=== PATIENT | male | born 1990 | race Caucasian/White ===

== ENCOUNTER 2024-08-01 11:15 | Emergency (ER) | payer OTHER, SELFPAY ==
[2024-08-01 11:32] VITALS: BP 126/78
[2024-08-01 12:06] VITALS: BMI 26.6
--- NOTE | 2024-08-01 13:11 | ED.GENMED ---
History of Present Illness
General
Chief Complaint: Headache
Source: patient
Time Seen by Provider: 08/01/24 13:01
History of Present Illness
History of Present Illness:
33yoM with a history of a prior sinus surgery at 15 and remote history of substance abuse currently on Sublocade presenting for evaluation of a headache/sinus pain x 2.5 weeks. He reports pain and pressure behind his right eye for the past several
weeks. He was seen at urgent care last week and prescribed prednisone 50mg x 5 days which he completed as well as amoxicillin x 10 days which he is still taking. Patient has not noticed any improvement in his symptoms. He states his symptoms feel
different than his prior sinus infections in that he is not having any associated nasal congestion. He used a Netipot yesterday and had worsening pain afterwards. He currently rates his pain as a 5/10 in severity. Ibuprofen does provide temporary
relief. He denies any fevers, chills, nausea, vomiting, dizziness, photophobia, blurred/double vision, foreign body sensation. He had a sinus surgery at the age of 15 in which 'mucous stuff' was removed.
Past History
Past History
ED Past Medical History: None
ED Past Surgical History: Other (Sinus surgery)
Social History
Tobacco: Smoker
Drug: Narcotics
Living: with family
Employment: Not employed
Phy Exam
General Physical Exam
General Presentation: well appearing and no apparent distress
General age: appears stated age
General Skin: warm and dry
General Habitus: normal
General Mental: alert
General Hydration: appears well hydrated
ENT Exam
ENT Exam: TM's normal, pharynx normal, neck supple and normocephalic
Eye Exam
Eye Exam: PERRL, EOMI, visual silverio normal and other (Pressure 9mmHg in R eye)
Cardiovascular Exam
Cardiovascular Exam: regular rate/rhythm and no murmur
Pulmonary Exam
Pulmonary Exam: lungs clear, no respiratory distress, no rales, no crackles, no rhonchi and no wheezing
Gypsy Coma Scale
Eye Opening: Spontaneous
Verbal Response: Oriented
Motor Response: Obeys Commands
GCS Total Score: 15
Skin Exam
Skin Exam: normal color and warm/dry
Psychiatric Exam
Psychiatric Exam: normal mood/affect
Course
Orders/Labs/Results
Orders:
Orders
08/01/24 13:10
CT Head W/o Iv Contrast Urgent
Comment:
Reason For Exam: Headache, pain behind R eye x 2 weeks
Vital Signs
Initial and Last Documented VS:
Initial Vital Signs
Temp Pulse Resp BP Pulse Ox
98.5 F 69 18 126/78 100
08/01/24 11:32 08/01/24 11:32 08/01/24 11:32 08/01/24 11:32 08/01/24 11:32
Last Documented Vital Signs
Temp Pulse Resp BP Pulse Ox
98.5 F 70 18 128/70 99
08/01/24 11:32 08/01/24 15:34 08/01/24 15:34 08/01/24 15:34 08/01/24 15:34
MDM/Problems Addressed
Differential Diagnosis Includes:
33yoM here with R sided headache/pain behind R eye x 2.5 weeks. Currently being treated for a sinus infection without improvement although he denies any nasal congestion. No visual symptoms. No fevers or neck stiffness. He is afebrile and
hemodynamically stable. He is well appearing in no distress. Exam is reassuring. Ocular pressure of R eye is normal. Differential diagnosis includes but is not limited to: migraine, tension headache, sinusitis
Initial ED plan: Check CT head. Patient declines analgesics.
*Critical Care Note
Total Time (30-74mins, 75-104mins- exclusive of procedures): Not Applicable
Update Note
Update Note:
CT head is negative for acute findings. The visualized sinuses appear normal. Patient is stable for discharge. Unclear etiology of symptoms. Supportive care discussed. He was advised to follow-up with his PCP. ED return precautions discussed.
He expressed understanding and is agreeable to plan. He was discharged in stable condition.
ED Attending Note
-
Portions of this chart may have been created with voice recognition software.� Occasional wrong word or��sound alike� substitutions may have occurred due to the inherent limitations of voice recognition software.
Discharge Plan
Departure
Patient Disposition: Home (Routine Discharge)
Date of Disposition: 08/01/24
Time of Disposition: 15:17
Patient with high blood pressure during this ER visit?: No
Discharge Problem:
Headache
Instructions: Headache, Adult (DC)
Prescriptions:
No Action
amoxicillin 500 MG capsule
500 mg PO TID Qty: 30 0RF
prednisone 50 MG tablet
50 mg PO DAILY 5 Days 0RF
amoxicillin-pot clavulanate 875 MG/125 MG tablet
1 tab PO Q12 Qty: 10 0RF
azithromycin 250 MG tablet
250 mg PO DAILY Qty: 6 0RF
albuterol sulfate [Proventil HFA] 90 MCG/PUFF HFA aerosol inhaler
1 puff inhalation Q4H PRN (Reason: SOB) Qty: 1 0RF
ondansetron 4 MG tablet,disintegrating
4 mg PO TIDPRN PRN (Reason: nausea/vomiting) Qty: 10 0RF
clonidine HCl 0.1 MG tablet
0.1 mg PO BID Qty: 8 0RF
Referrals:
NONE,* [Family Provider] -
Activity Restrictions/Additional Instructions:
Take Tylenol and ibuprofen as needed for pain.
Please follow-up with a primary care provider. Return to the ER with any new or worsening symptoms.
Interventions
Interventions:
*Risk Screen - Suicide Last Done: 08/01/24 11:32
*General Assessment Last Done: 08/01/24 11:32
*Neglect/Abuse Screening Last Done: 08/01/24 11:32
*Nursing Disposition Last Done: 08/01/24 15:36
ED- Neurological Assessment Last Done: 08/01/24 12:06
Discharge Date and Time
Discharge Date/Time: 08/01/24 15:36
Print Language: ALBANIAN
[2024-08-01 15:34] VITALS: BP 128/70
== END 2024-08-01 15:36 | disposition home or self-care (01) ==
LOC: EMR 11:15
PROVIDERS: EMERGENCY PHYSICIAN Emergency Medicine
DX: R51.9 Headache, unspecified (principal)
CPT/HCPCS: 99284; 70450

== ENCOUNTER 2025-07-11 09:55 | Emergency (ER) | payer OTHER, SELFPAY ==
[2025-07-11 10:03] VITALS: BP 128/87
[2025-07-11 10:25] LABS: Hematocrit 46.0 % (39.0-52.0); Hemoglobin 15.7 g/dL (13.0-18.0); Mean Corp Hgb Conc. 34.1 g/dL (33.0-37.0); Mean Corpuscular Volume 86.8 fL (80.0-94.0); Nucleated Red Blood Cells % 0 % (-); Platelet Count 263 10^3/uL (130-400); Red Cell Dist. Width 12.5 % (11.5-14.5)
[2025-07-11 10:49] LABS: ALT (SGPT) 58 U/L (0-50); AST (SGOT) 31 U/L (17-59); Albumin 5.1 g/dl (3.5-5.0); Alkaline Phosphatase 64 U/L (38-126); Blood Urea Nitrogen 11 mg/dl (9-20); Calcium 10.3 mg/dl (8.4-10.2); Carbon Dioxide 28 mmol/L (22-30); Chloride 104 mmol/L (98-107); Glucose 107 mg/dl (70-99); Potassium 4.6 mmol/L (3.5-5.1); Sodium 140 mmol/L (135-145); Total Protein 7.7 g/dl (6.3-8.2); eGFR > 60.00
[2025-07-11 11:36] VITALS: BP 124/76
[2025-07-11 11:39] VITALS: BMI 29.2
[2025-07-11 12:00] VITALS: BP 111/77
[2025-07-11 12:03] LABS: Troponin I < 0.012 ng/ml
--- NOTE | 2025-07-11 12:04 | ED.GENMED ---
History of Present Illness
<Bhargavi Reyes MD, Resident - Last Filed: 07/11/25 14:19>
General
Chief Complaint: Chest Pain
Source: patient
Time Seen by Provider: 07/11/25 11:41
History of Present Illness
History of Present Illness:
Anatoly Oshea is a 34-year-old male with history of opioid use disorder s/p Sublocade x 7, WPW, and sinus infections who presents with 2 days of chest discomfort. He states that he feels a pressure/shooting pain in his sternum that radiates to his
neck and jaw. He has taken Motrin without relief. He also endorses shortness of breath on exertion, for example he feels winded going from the bathroom to his room. He endorses a family history of early cardiac disease and [place] (heart attack and
stenting in dad in his 40s). Of note, he does not follow with any specialist despite WPW history. He denies nausea, vomiting, fevers, withdrawal symptoms, opioid use, trauma to the area, or recent infection.
Past History
<Bhargavi Reyes MD, Resident - Last Filed: 07/11/25 14:19>
Past History
ED Past Medical History: Other (WPW, opioid use disorder s/p Sublocade)
ED Past Surgical History: Other (Sinus surgery)
Social History
Tobacco: Smoker
Drug: Narcotics
Living: with family
Employment: Not employed
Phy Exam
<Bhargavi Reyes MD, Resident - Last Filed: 07/11/25 14:19>
General Physical Exam
General Presentation: well appearing and no apparent distress
General Skin: warm and dry
ENT Exam
ENT Exam: EOMI
Cardiovascular Exam
Cardiovascular Exam: regular rate/rhythm, no edema, no gallop, no JVD and no murmur
Pulmonary Exam
Pulmonary Exam: lungs clear and no respiratory distress
Gastrointestinal Exam
Gastrointestinal Exam: normal bowel sounds, non tender, soft and non distended
Skin Exam
Skin Exam: normal color and warm/dry
Scores
<Bhargavi Reyes MD, Resident - Last Filed: 07/11/25 14:19>
Heart Score for Chest Pain Patients
STEMI patient?: No
History: Slightly or Non-Suspicious
ECG: Normal (As baseline WPW)
Age: </= 45 years
Risk Factors: 1 or 2 Risk Factors
Troponin: >1 - <3 x Normal Limit
Heart Score for Chest Pain Patients: 2
Heart Score Risk: 2.5% MACE over next 6 weeks
Course
<Bhargavi Reyes MD, Resident - Last Filed: 07/11/25 14:19>
Orders/Labs/Results
Orders:
Orders
07/11/25 10:02
EKG [Electrocardiogram (*1)] Urgent
Reason for Study: Tachycardia
EKG- Treatment ONCE
07/11/25 10:20
Complete Blood Count/With Diff Urgent
Comprehensive Metabolic Panel Urgent
Troponin I Urgent
07/11/25 12:18
CR Chest - 2 Views Urgent
Comment:
Reason For Exam: SOB, chest pain
07/11/25 12:36
D-Dimer Urgent
Abnormal Lab Results
07/11/25
10:20
Glucose 107 H mg/dl
(70-99)
Calcium 10.3 H mg/dl
(8.4-10.2)
ALT 58 H U/L
(0-50)
Albumin 5.1 H g/dl
(3.5-5.0)
07/11/25 10:20
07/11/25 10:20
Vital Signs
Initial and Last Documented VS:
Initial Vital Signs
Temp Pulse Resp BP Pulse Ox
98.0 F 73 16 128/87 99
07/11/25 10:03 07/11/25 10:03 07/11/25 10:03 07/11/25 10:03 07/11/25 10:03
Last Documented Vital Signs
Temp Pulse Resp BP Pulse Ox
98.4 F 60 17 119/77 99
07/11/25 12:00 07/11/25 13:00 07/11/25 13:00 07/11/25 13:00 07/11/25 12:05
<Randy Mooney, DO - Last Filed: 07/11/25 13:25>
Orders/Labs/Results
Orders:
Orders
07/11/25 10:02
EKG [Electrocardiogram (*1)] Urgent
Reason for Study: Tachycardia
EKG- Treatment ONCE
07/11/25 10:20
Complete Blood Count/With Diff Urgent
Comprehensive Metabolic Panel Urgent
Troponin I Urgent
07/11/25 12:18
CR Chest - 2 Views Urgent
Comment:
Reason For Exam: SOB, chest pain
07/11/25 12:36
D-Dimer Urgent
Abnormal Lab Results
07/11/25
10:20
Glucose 107 H mg/dl
(70-99)
Calcium 10.3 H mg/dl
(8.4-10.2)
ALT 58 H U/L
(0-50)
Albumin 5.1 H g/dl
(3.5-5.0)
07/11/25 10:20
07/11/25 10:20
Vital Signs
Initial and Last Documented VS:
Initial Vital Signs
Temp Pulse Resp BP Pulse Ox
98.0 F 73 16 128/87 99
07/11/25 10:03 07/11/25 10:03 07/11/25 10:03 07/11/25 10:03 07/11/25 10:03
Last Documented Vital Signs
Temp Pulse Resp BP Pulse Ox
98.4 F 60 17 119/77 99
07/11/25 12:00 07/11/25 13:00 07/11/25 13:00 07/11/25 13:00 07/11/25 12:05
<Bhargavi Reyes MD, Resident - Last Filed: 07/11/25 14:19>
MDM/Problems Addressed
MDM/Problems Addressed:
Anatoly Oshea is a 34-year-old male with history of opioid use disorder s/p Sublocade x 7, WPW, and sinus infections who presents with 2 days of chest discomfort.
#Chest discomfort
#WPW
- EKG stable from before
- Chest x-ray unremarkable, stable as before
- Patient is asymptomatic in ED: Stable for discharge
- Given history of WPW, will place referral to stage technician on-call and instruct patient to follow-up outpatient
<Bhargavi Reyes MD, Resident - Last Filed: 07/11/25 14:19>
*Pulse Oximetry
SaO2: 99
Oxygen Mode of Delivery: Room air
Patient hypoxic: no
*Critical Care Note
Total Time (30-74mins, 75-104mins- exclusive of procedures): Not Applicable
ED Attending Note
<Bhargavi Reyes MD, Resident - Last Filed: 07/11/25 14:19>
-
Portions of this chart may have been created with voice recognition software.� Occasional wrong word or��sound alike� substitutions may have occurred due to the inherent limitations of voice recognition software.
<Randy Mooney, - Last Filed: 07/11/25 13:25>
ED Attending Note
Patient seen and examined by attending physician: Yes
I performed a history and physical exam of patient and discussed management with resident, I reviewed resident's note and agree with documented findings and plan of care.: Yes
ED Attending Note:
I have reviewed and agree with the treatment plan by Michael Reyes MD. my exam revealed 34-year-old male in no acute distress. Possibly chest wall pain versus strain. Do not suspect ACS or PE. Will discharge patient to follow-up routinely with
cardiology due to family history of cardiac disease.
Discharge Plan
Departure
Patient Disposition: Home (Routine Discharge)
Date of Disposition: 07/11/25
Time of Disposition: 13:30
Patient with high blood pressure during this ER visit?: No
Condition: Good
Discharge Problem:
Chest pain
Prescriptions:
No Action
amoxicillin 500 MG capsule
500 mg PO TID Qty: 30 0RF
prednisone 50 MG tablet
50 mg PO DAILY 5 Days 0RF
amoxicillin-pot clavulanate 875 MG/125 MG tablet
1 tab PO Q12 Qty: 10 0RF
azithromycin 250 MG tablet
250 mg PO DAILY Qty: 6 0RF
albuterol sulfate [Proventil HFA] 90 MCG/PUFF HFA aerosol inhaler
1 puff inhalation Q4H PRN (Reason: SOB) Qty: 1 0RF
ondansetron 4 MG tablet,disintegrating
4 mg PO TIDPRN PRN (Reason: nausea/vomiting) Qty: 10 0RF
clonidine HCl 0.1 MG tablet
0.1 mg PO BID Qty: 8 0RF
Referrals:
Lucy Soto CRNP [Family Provider]
Thierry Rose MD [Active, Cardiology] - Call in 1-3 days for appt
Referral Note: Follow-up with cardiology about WPW and your episode of chest pain.
Interventions
Interventions:
*Risk Screen - Suicide Last Done: 07/11/25 10:03
*General Assessment Last Done: 07/11/25 10:03
*Neglect/Abuse Screening Last Done: 07/11/25 10:03
*ED- Fall Risk Assessment Last Done: 07/11/25 10:03
*ED COVID-19 Vaccine History Last Done: 07/11/25 10:03
*Nursing Disposition Last Done: 07/11/25 13:45
ED- Cardiac Assessment Last Done: 07/11/25 11:40
Discharge Date and Time
Discharge Date/Time: 07/11/25 13:46
Print Language: [place]
[2025-07-11 13:00] VITALS: BP 119/77
[2025-07-11 13:01] LABS: D-Dimer < 0.27 ug/mlFEU (0.00-0.50)
== END 2025-07-11 13:46 | disposition home or self-care (01) ==
LOC: EMR 09:55
PROVIDERS: EMERGENCY PHYSICIAN Emergency Medicine; FAMILY PHYSICIAN Nurse Practitioner Family
DX: R07.89 Other chest pain (principal); I45.6 Pre-excitation syndrome; F17.200 Nicotine dependence, unspecified, uncomplicated
CPT/HCPCS: 99285; 71046; 80053; 84484; 85025; 85379; 93005